=== PATIENT | female | born 1950 | race Caucasian/White ===

== ENCOUNTER 2017-03-29 10:22 | Outpatient (CLI) | payer OTHER ==
[2017-03-29 11:53] LABS: CALCIUM 9.5 mg/dL (8.5-10.3); CREATININE 0.9 mg/dL (0.4-1.0); PHOSPHORUS 3.4 mg/dL (2.5-4.6); POTASSIUM 4.2 mmol/L (3.5-5.0)
== END 2017-03-29 10:23 | disposition home or self-care (01) ==
LOC: LAB 10:22
DX: E87.5 Hyperkalemia (principal)
CPT/HCPCS: 36415; 80069

== ENCOUNTER 2017-05-19 06:45 | Day surgery (SDC) | payer MEDICARE, OTHER ==
[~2017-05-19 06:45] MED LIST: CYCLOPENTOLATE 1% OPHTH DROPS 2 ML ONE; KETOROLAC 0.45% OPHTH DROPS ONE; PHENYLEPHRINE 2.5% OPHTH 2 ML DROPS ONE; PROPARACAINE 0.5% OPHTH DROPS 15 ML ONE
[2017-05-19] MEDS ORDERED: LACTATED RINGERS 500 ML IV ONE (06:54)
[2017-05-19] MEDS ORDERED: BRIMONIDINE 0.2% OPHTH DROPS 5 ML ONE (07:20)
[2017-05-19] MEDS ORDERED: TIMOLOL 0.5% OPHTH DROPS ONE (07:20)
[2017-05-19] MEDS ORDERED: MIDAZOLAM 2 MG/2 ML VIAL IVP ONE (08:00)
[2017-05-19] MEDS ORDERED: BRIMONIDINE 0.2% OPHTH DROPS 5 ML OPTH ONE (08:03)
[2017-05-19] MEDS ORDERED: EPINEPHrine 1 MG/ML AMP IVP ONE (08:03)
[2017-05-19] MEDS ORDERED: PROPARACAINE 0.5% OPHTH DROPS 15 ML OPTH ONE (08:04)
[2017-05-19] MEDS ORDERED: CHONDR SULF/HYALURONATE SYRINGE IO ONE (08:04)
[2017-05-19] MEDS ORDERED: TIMOLOL 0.5% OPHTH DROPS OPTH ONE (08:04)
[2017-05-19] MEDS ORDERED: BSS/LIDOCAINE/EPINEPHRINE 1 ML SYRINGE IO ONE (08:05)
[2017-05-19] MEDS ORDERED: TRIAMCIN/MOXIFLOX/VANCO 1 ML VIAL IO ONE (08:05)
[2017-05-19] MEDS ORDERED: fentaNYL 100 MCG/2 ML VIAL ONE (08:25)
[2017-05-19 08:36] VITALS: BP 105/86
--- NOTE | 2017-05-19 10:12 | OPERATIVE REPORT ---
DATE OF SURGERY: 05/19/2017 00:00:00 PREOPERATIVE DIAGNOSIS: Visually significant cataract, right eye. This is her first cataract surgery. POSTOPERATIVE DIAGNOSIS: Visually significant cataract, right eye. This is her first cataract surgery . NAME OF PROCEDURE: Phacoemulsification posterior chamber intraocular lens implant, right eye. SURGEON: Raheel Garcia MD. ANESTHESIA: Monitored anesthesia care. COMPLICATIONS: None. OPERATIVE INDICATIONS: This is a 66-year-old woman with progressive vision loss in the right eye due to 2+ nuclear sclerotic cataract. Best corrected visual acuity was 20/40 with glare to 20/200 in the right eye. INDICATIONS FOR SURGERY: Overall decrease in vision, difficulty seeing words on a computer screen, di fficulty reading, difficulty driving at night, difficulty driving at night because of head lights fro m other vehicles, and difficulty with glare or bright lights in any situation. She was consented at [facility] concerning the risks and benefits of cataract surgery, after which she expressed a desire to pr oceed with surgery. OPERATIVE PROCEDURE: The patient was taken into OR #2 and placed under monitored anesthesia care. A s urgical time-out was conducted confirming the correct patient, correct procedure and correct surgical site. She was given topical anesthesia and then prepped and draped in the usual sterile fashion. The eye was entered at the 12 and 9 o'clock positions. Intracameral Shugarcaine was injected into the an terior chamber followed by Viscoat. A continuous tear curvilinear capsulorrhexis was performed. The n ucleus was hydrodissected and phacoemulsified. The cortex was evacuated using automated infusion aspi ration. Provisc was injected in the capsular bag, and a 20.5-diopter intraocular lens was inserted in to the bag. Approximately 0.7 mL of a mixture of triamcinolone, moxifloxacin, and vancomycin was inje cted subconjunctivally in the superior quadrant for infection and inflammation prophylaxis. I/A was u sed to evacuate the viscoelastic materials. The eye was inflated to a physiologic pressure using darlyn nced salt solution and found to be watertight. The patient was taken from the operating room in good condition and given postoperative instructions. JOB #: [id number] EXT JOB #:[id number]
== END 2017-05-19 06:46 | disposition home or self-care (01) ==
LOC: SDS 06:45
PROVIDERS: ATTEND Ophthalmology
PROC: 08RJ3JZ Replacement of Right Lens with Synthetic Substitute, Percutaneous Approach (ICD-10-PCS; principal; 2017-05-19 08:00)
DX: H25.11 Age-related nuclear cataract, right eye (principal); E03.9 Hypothyroidism, unspecified
CPT/HCPCS: 66984; A9270; J3490; V2632